=== PATIENT | female | born 1975 | race Caucasian/White ===

== ENCOUNTER 2018-01-26 20:24 | Emergency (ER) | payer SELFPAY ==
[~2018-01-26] VITALS: Ht 170.2 cm; Wt 146.8 kg
[2018-01-26 20:29] VITALS: Ht 170.2 cm; Wt 146.8 kg
[2018-01-26] MEDS ORDERED: SYNTHROID200 MC1 PO (20:31)
[2018-01-26 21:27] LABS: BASOPHILS 0.4 % (0-2); EOSINOPHILS 2.6 % (0-7); HEMATOCRIT 25.1 % (36.0-48.0); IMMATURE GRANULOCYTES 0.2 % (0-5); LYMPHOCYTES 26.9 % (15-50); MCHC 27.5 g/dL (31.0-37.0); MCV 65.2 fL (80.0-100.0); MEAN PLATELET VOLUME 9.4 fL (7.4-10.4); MONOCYTES 4.3 % (2-11); NEUTROPHILS 65.6 % (40-80); PLATELET COUNT 249 10x3/uL (130-400); RBC 3.85 10x6/uL (4.00-5.40); RDW 22.3 % (11.5-14.5); WBC 8.2 10x3/uL (4.8-10.8)
[2018-01-26 22:04] LABS: APPEARANCE CLEAR (CLEAR); BILIRUBIN NEGATIVE (NEGATIVE); COLOR YELLOW (YELLOW); GLUCOSE NEGATIVE (NEGATIVE); KETONE NEGATIVE (NEGATIVE); NITRITE NEGATIVE (NEGATIVE); PROTEIN NEGATIVE (NEGATIVE); UROBILINOGEN NORMAL (NORMAL)
[2018-01-26 22:06] LABS: BACTERIA MANY /hpf (NONE SEEN); RED CELLS - URINE 0-5 /hpf (0-5); WHITE CELLS - URINE 0-5 /hpf (0-5)
[2018-01-26 22:11] LABS: ALBUMIN 3.5 g/dL (3.4-5.0); ALKALINE PHOSPHATASE 89 U/L (46-116); ALT (SGPT) 17 U/L (10-68); BILIRUBIN - TOTAL 0.18 mg/dL (0.2-1.3); CALC OSMOLALITY 277 mosm/kg (275-300); CALCIUM 7.9 mg/dL (8.5-10.1); CARBON DIOXIDE 26.3 mmol/L (21.0-32.0); CHLORIDE - SERUM 106 mmol/L (98-107); GLUCOSE 134 mg/dL (74-106); POTASSIUM - SERUM 3.3 mmol/L (3.5-5.1); PROTEIN - SERUM 6.9 g/dL (6.4-8.2); SODIUM 138 mmol/L (136-145); UREA NITROGEN 12 mg/dL (7-18); eGFR NON AFRICAN AMERICAN 64 mL/min (90-120)
[2018-01-26 22:17] LABS: HCG URINE NEGATIVE (NEGATIVE)
[2018-01-26 22:18] LABS: HEMOGLOBIN 6.9 g/dL (12-16); MCH 17.9 pg (26.0-34.0)
[2018-01-26 22:37] LABS: CKMB 0.8 U/L (0.0-3.6); CREATINE KINASE 86 UL (21-215); THYROID STIMULATING HORMONE 46.97 uIU/mL (0.36-3.74); TROPONIN-I < 0.017 ng/mL (0.000-0.060)
[2018-01-26 23:09] VITALS: BP 121/49
== END 2018-01-26 23:09 | disposition home or self-care (01) ==
LOC: D.ER 20:24
PROVIDERS: Family Medicine
DX: R00.2 Palpitations (principal); D64.9 Anemia, unspecified; R23.2 Flushing; Z86.39 Personal history of other endocrine, nutritional and metabolic disease; E07.9 Disorder of thyroid, unspecified; I10 Essential (primary) hypertension; F17.200 Nicotine dependence, unspecified, uncomplicated